=== PATIENT | male | born 1980 | race African-American/Black ===

== ENCOUNTER 2023-07-14 12:10 | Emergency (ER) | payer OTHER, SELFPAY ==
--- NOTE | ~2023-07-14 | US_ITS ---
EXAMINATION: US venous doppler LE RT DATE: 07/14/2023 13:19 INDICATION: Right lower limb pain and swelling. TECHNIQUE: Grayscale ultrasound images without and with compression and Doppler ultrasound images of the right lower extremity veins were obtained. COMPARISON: None. FINDINGS: The visualized portions of right common femoral vein, profunda (deep) femoral vein, femoral vein, pop liteal vein, and greater saphenous vein outflow are patent. The calf veins are not well visualized. IMPRESSION: 1. No deep venous thrombosis. Reviewed, dictated and finalized at location A.
[2023-07-14 12:33] VITALS: BP 193/106; PULSE 103; RESP 16; TEMP 36.3; O2SAT 100
--- NOTE | 2023-07-14 12:54 | ED.LOWEXIN ---
HPI - Extremity Injury (Lower) General Chief Complaint: Extremity Injury, Lower <Stephenie Alcantar PA-C - Last Filed: 07/14/23 13:06> Stated Complaint: right leg swelling <Stephenie Alcantar PA-C - Last Filed: 07/14/23 13:06> Time Seen by Provider: 07/14/23 12:55 <Stephenie Alcantar PA-C - Last Filed: 07/14/23 13:06> Focused HPI:Patient is a 43-year-old male who presents the ED with report of right lower extremity swelling. Patient reports having increased swelling over the last 2 weeks. States his family was concerned and wanted him to come to the ED today. Does complain of pain throughout his right lower extremity. History of DVT last year, which he reports was unprovoked. He is not currently on any blood thinners. Had been on anticoagulation initially. Denies numbness, chest pain, shortness of breath, dyspnea with exertion. Denies any injury. GENERAL: Well-appearing, obese with BMI of 37.2, and in no acute distress. HEAD: Normocephalic, atraumatic. CHEST: Clear to auscultation. ?No respiratory distress. HEART: Borderline tachycardic with regular rhythm.? MSK: Diffuse swelling and tenderness throughout R lower leg. Small ulcerated wound to R lateral lower leg, no active drainage,. NEURO: ?Alert and oriented x3. Patient screened in triage and initial orders placed.? ?Additional care and disposition to be based upon?diagnostic testing and treatment. <Stephenie Alcantar PA-C - Last Filed: 07/14/23 13:06> Source: patient <Stephenie Alcantar PA-C - Last Filed: 07/14/23 13:06> Mode of arrival: ambulatory <Stephenie Alcantar PA-C - Last Filed: 07/14/23 13:06> Limitations: no limitations <Stephenie Alcantar PA-C - Last Filed: 07/14/23 13:06> History of Present Illness HPI Narrative: Agree with HPI. <Brandon Anand MD - Last Filed: 07/14/23 14:41> Related Data Allergies/Adverse Reactions: Allergies Allergy/AdvReac Type Severity Reaction Status Date / Time No Known Allergies Allergy Unknown Verified 09/29/14 22:08 <Stephenie Alcantar PA-C - Last Filed: 07/14/23 13:06> Review of Systems Review of Systems: All systems reviewed & are unremarkable except as noted in HPI and below <Brandon Anand MD - Last Filed: 07/14/23 14:41> Constitutional: Constitutional: Denies chills, Reports fatigue and Denies fever(s) <Brandon Anand MD - Last Filed: 07/14/23 14:41> Cardiovascular: Cardiovascular: Reports no additional cardiovascular complaints <Brandon Anand MD - Last Filed: 07/14/23 14:41> Respiratory: Respiratory: Reports no additional respiratory complaints <Brandon Anand MD - Last Filed: 07/14/23 14:41> Gastrointestinal: Gastrointestinal: Reports no additional gastrointestinal complaints <Brandon Anand MD - Last Filed: 07/14/23 14:41> Musculoskeletal: Musculoskeletal: Reports no additional musculoskeletal complaints <Brandon Anand MD - Last Filed: 07/14/23 14:41> Integumentary/Breasts: Skin/Breast: Denies pruritus, Denies rash and Reports skin ulcer <Brandon Anand MD - Last Filed: 07/14/23 14:41> [facility] Past Medical History Medical History: Medical History (Updated 07/14/23 @ 14:40 by Brandon Anand MD) Attention deficit disorder Chronic fatigue Depression with anxiety Essential hypertension History of DVT (deep vein thrombosis) Mild persistent asthma without complication <Stephenie Alcantar PA-C - Last Filed: 07/14/23 13:06> Family History Family History: Family History (Updated 09/08/15 @ 23:19 by DOCTOR UNKNOWN) Mother Family history of diabetes mellitus in first degree relative <KODAK Hicks Last Filed: 07/14/23 13:06> Social History Social History: Social History Smoking status: Heavy tobacco smoker Alcohol intake: current <KODAK Hicks Last Filed: 07/14/23 13:06> Exam Narrative: GENERAL: sleeping in the room
[2023-07-14 14:04] LABS: Basophils Percent Auto 0.3 % (0.2-1.2); Eosinophils Absolute Auto 0.2 K/mm3 (0-0.3); Eosinophils Percent Auto 2.7 % (0-4.4); Hematocrit 39.5 % (42.0-52.0); Hemoglobin 13.2 g/dL (14.0-18.0); Immature Granulocyte Absolute 0.02 K/mm3 (0.00-0.031); Immature Granulocyte Percent A 0.3 % (0-0.5); Lymphocytes Absolute Auto 1.95 K/mm3 (0.9-3.2); Lymphocytes Percent Auto 28.9 % (18.3-44.2); Mean Corpuscular HGB Conc 33.4 g/dl (32-36); Mean Corpuscular Hemoglobin 28.5 pg (26-34); Mean Corpuscular Volume 85.3 fl (80-100); Mean Platelet Volume 11.3 fl (7.4-10.4); Monocytes Absolute Auto 0.7 K/mm3 (0.1-0.6); Monocytes Percent Auto 10.1 % (2.6-8.5); Neutrophils Absolute Auto 3.9 K/mm3 (1.3-6.7); Neutrophils Percent Auto 57.7 % (45.5-73.1); Platelet Count Result 183 k/mm3 (150-375); Red Blood Count 4.63 M/mm3 (4.6-6.20); Red Cell Distribution Width 14.6 % (11.5-14.5); White Blood Count 6.7 K/mm3 (4.5-10.0)
[2023-07-14 14:22] LABS: Alanine Aminotransferase 33 U/L (6-50); Albumin Level 3.9 g/dL (3.5-5.1); Alkaline Phosphatase 84 U/L (38-126); Anion Gap 5 mmol/L (4-12); Aspartate Amino Transferase 34 U/L (17-59); Bilirubin,Total 0.7 mg/dL (0.2-1.3); Blood Urea Nitrogen 9 mg/dL (9-20); Calcium 8.5 mg/dL (8.4-10.2); Carbon Dioxide 25 mmol/L (22-30); Chloride 110 mmol/L (98-107); Estimated CRCL calculation 115 ml/min; Estimated Glomerular Filt Rate > 60; Glucose 116 mg/dL (65-110); INR 0.9; Partial Thromboplastin Time 29.2 Seconds (22.3-36.8); Potassium 3.7 mmol/L (3.4-5.0); Prothrombin Time 12.9 Seconds (11.1-14.7); Sodium 140 mmol/L (137-145)
== END 2023-07-14 15:21 | disposition home or self-care (01) ==
PROVIDERS: Physician Assistant; Emergency Provider Emergency Medicine
DX: L03.115 Cellulitis of right lower limb (principal); F41.8 Other specified anxiety disorders; I10 Essential (primary) hypertension; Z86.718 Personal history of other venous thrombosis and embolism; J45.909 Unspecified asthma, uncomplicated
CPT/HCPCS: 36415; 80053; 85025; 85610; 85730; 93971; 99284

== ENCOUNTER 2023-12-18 10:27 | Outpatient (CLI) | payer OTHER, SELFPAY ==
--- NOTE | ~2023-12-18 | CT_ITS ---
CT of the Abdomen and Pelvis: Indication: Hematuria Technique: 2.5 mm axial scans were obtained through the abdomen and pelvis prior to and following in travenous administration of 130 cc of Omnipaque 350. Dose reduction technique was used on this scan b y utilizing automated exposure control and iterative reconstruction technique. The dose-length produc t (DLP) was 2672.79 mGy-cm. Findings: Scans through the lung bases are unremarkable. There is an area of coarse calcification in the liver near the gallbladder fossa. The spleen, pancrea s, gallbladder, adrenals and kidneys are within normal limits. There are atherosclerotic calcificatio ns of the aorta. No lymphadenopathy. No bowel obstruction or bowel wall thickening. There is no evidence to suggest acute appendicitis. Images through the pelvis were performed. Urinary bladder unremarkable. No pelvic mass seen. No ascit es. Impression: No etiology for hematuria identified. Reviewed, dictated and finalized at [facility]. SUPERINTENDENT Impression: No etiology for hematuria identified.
[2023-12-18 11:02] LABS: Estimated Glomerular Filt Rate > 60
== END 2023-12-18 10:28 | disposition home or self-care (01) ==
PROVIDERS: Visit Provider Urology
DX: R31.9 Hematuria, unspecified (principal)
CPT/HCPCS: 74178; Q9967

== ENCOUNTER 2024-01-29 00:46 | Day surgery (SDC) | payer OTHER, SELFPAY ==
--- NOTE | 2024-01-16 07:26 | P.HP_ITS ---
History of Present Illness History of Present Illness Consent: Risks, benefits, and alternatives have been discussed and questions answered. Patient agrees to proceed with procedure. Chief complaint: Hematuria Narrative: Clive Bonner Jr. is a 43 year old male who recently underwent evaluation for intermittent episodes of scant terminal hematuria. CT urogram revealed a normal upper urinary tract. Cystoscopy showed a wide caliber bulbous urethral stricture with an otherwise normal bladder and lower urinary tract. After discussion of options he elects for cystoscopy with urethral dilatation. He is aware of the risks including, but not including, recurrent stricture, need for short-term catheterization. Review of Systems Review of Systems: All systems reviewed & are unremarkable except as noted in HPI and below PMFSH Past Medical History Medical History (Updated 01/16/24 @ 07:27 by Shahab Pardo MD) Attention deficit disorder Chronic fatigue Depression with anxiety Essential hypertension History of DVT (deep vein thrombosis) Mild persistent asthma without complication Family History Family History (System 12/24/23 @ 13:18 by Nadya Wade) Mother Family history of diabetes mellitus in first degree relative Social History Social History (System 12/24/23 @ 13:18 by Nadya Wade) Smoking status: Never smoker Alcohol intake: current Meds Home Medications and Allergies Home Medications Medication Instructions Recorded Confirmed Type cefuroxime axetil 500 mg tablet 500 mg PO BID #20 tabs 07/14/23 Rx Allergies Allergy/AdvReac Type Severity Reaction Status Date / Time No Known Allergies Allergy Unknown Verified 12/24/23 13:18 Exam Const: General: no acute distress Resp: Effort & Inspection: normal respiratory effort GI: Inspection: non-distended GI Palp: No abdominal tenderness and No Guarding due to palpation present (GI) Auscultation: normal bowel sounds Assessment and Plan Assessment and plan (1) Bulbous urethral stricture: Code(s): N35.912 - Unspecified bulbous urethral stricture, male Status: Acute Assessment and Plan: * Cystoscopy, urethral dilatation
--- NOTE | 2024-01-21 10:14 | PC.NURSE ---
Spoke with Thee at [facility] alf requesting information be faxed to us.
[2024-01-23 10:03] VITALS: BMI 36.3
--- NOTE | 2024-01-23 10:20 | PC.NURSE ---
Report to hospital entrance 7 to the right of the green pavilion by the Dr's parking lot located off [facility], at time _0930_ on date _[id number]_. Planned Procedure Time: _1130_.? Time changes happen often and if your time is changed the preop area will call you the afternoon before. - You and your visitor will be asked to self-screen and do not enter if you have any COVID symptoms. Please call surgeon if you need to reschedule. - A mask is optional within the hospital at this time. Patients may have clear liquids (water, carbonated beverages, clear teas, apple juice) until 3 hours prior to surgery with a maximum of 20 ounces. - No food from midnight until time of surgery and no smoking. This includes no chewing gum, candy or mints. Take only the following medications with a SIP of water on the morning of surgery: __Amlodipine and Clonidine__ DO NOT STOP ANY OF YOUR OTHER PRESCRIPTION MEDICATIONS PRIOR TO SURGERY EXCEPT THE FOLLOWING Medications to discontinue per physician ____None___ Please no make-up, nail macedonian, hairspray, perfume, deodorant, or body powder the day of surgery.? No jewelry (including any body piercings) or valuables the day of surgery, leave them at home.? Please take a shower or bath the night before, or the morning of, surgery with an antibacterial soap.? Wear comfortable, loose fitting clothing.? - Jewelry must be removed prior to entering the operating room.? Rings and piercings that are not removed may be cut off. - The hospital will not accept responsibility for valuables.? - Please leave all valuables, including medications, at home the day of surgery. If you are going home after surgery, a licensed taxi driver supervisor must drive you home.? - NO public transportation without another adult if you receive anesthesia. - We recommend that an adult stay with you for 24 hours following discharge. - We also recommend that you do not drive, make important decision, drink alcoholic beverages, or take any drugs that were not prescribed by your health care provider for at least 24 hours after your discharge time. Follow any additional instructions given to you from your surgeon. Telephone instructions given to _Rob__and asked if any additional questions and then verbalized understanding. Patient advised to call surgeon office or pre surgery nurse liaison [phone] if any additional questions.
[2024-01-29] VITALS (9 sets, daily range): BP systolic 68–138; BP diastolic 46–82; PULSE 58–80; RESP 14–16; TEMP 36.3; O2SAT 100
--- NOTE | 2024-01-29 06:07 | WPDHPUPDATE1 ---
History and Physical Update Update Date/Time: 01/29/24 06:07 History and Physical has been reviewed, including an updated exam of the patient. There are NO changes in the patient's condition. Risks, benefits, and alternatives have been discussed and questions answered. Patient agrees to proceed with procedure.
--- NOTE | 2024-01-29 09:46 | ECG_ITS ---
Test Date: 2024-01-29 10:18:08 Measurements Intervals [place] Rate: 62 P: 52 MA: 151 QRS: 51 QRSD: 86 T: 30 QT: 410 QTc: 419 Interpretive Statements SINUS RHYTHM No previous ECG available for comparison Electronically Signed On 01-30-2024 11:51:51 [employer] MACHINE ADJUSTER by Baljeet Wan M.D.
[2024-01-29] MEDS: LACTATED RINGERS 1,000 ML 30 ML IV CONT ×2 (10:00→11:35)
--- NOTE | 2024-01-29 10:03 | P.PNAN_ITS ---
Anes - Initial Pre Proc Eval Procedure: Operation Date: 01/29/24 11:30 Proposed Procedures p Cystoscopy, Urethral Dilatation - Shahab Pardo MD Date/Time: 01/29/24 10:03 Surgeon: Shahab Pardo MD Pre Op Diagnosis: Hematuria Patient Data Age: 43 Gender: M Height: 1.75 m Weight: 111.8 kg Allergies Allergy/AdvReac Type Severity Reaction Status Date / Time No Known Allergies Allergy Unknown Verified 01/23/24 10:12 Home Medications ?Medication ?Instructions ?Recorded ?Confirmed ?Type acetaminophen 500 mg tablet 1,000 mg PO BID 01/23/24 01/23/24 History amlodipine 10 mg tablet 10 mg PO DAILY 01/23/24 01/23/24 History clonidine HCl 0.2 mg tablet 0.2 mg PO Q12H 01/23/24 01/23/24 History hydrochlorothiazide 12.5 mg capsule 12.5 mg PO DAILY 01/23/24 01/23/24 History lisinopril 40 mg tablet 40 mg PO DAILY 01/23/24 01/23/24 History tamsulosin 0.4 mg capsule 0.4 mg PO DAILY 01/23/24 01/23/24 History Patient hx anesthesia problems: none Family hx anesthesia problems: none Results Review: All pre-operative results and documents have been reviewed as part of the pre- operative evaluation. [facility] Past Medical History Medical History History of DVT (deep vein thrombosis) Mild persistent asthma without complication Essential hypertension Depression with anxiety Chronic fatigue Attention deficit disorder Family History Family History Mother Family history of diabetes mellitus in first degree relative Social History Social History Smoking status: Never smoker Alcohol intake: current Anes - Eval Final PreProcedure Day of Procedure 01/29/24 10:03 Patient weight: obese Heart: regular rate and rhythm Lungs: clear to auscultation Airway: Mallampati scale class II Neurological: alert and oriented Last oral intake: >/= 8 hours ASA classification: III Emergent: no Anesthetic plan: proceed Anesthesia type and monitoring: general LMA and standard monitoring Results Review: All pre-operative results and documents have been reviewed as part of the pre- operative evaluation. Informed Consent: The patient's anesthetic plan and its attendant risks and benefits were dis cussed with the patient/family/POA. Questions were solicited and answers provided to the satisfaction of the patient/family/POA.
[2024-01-29 10:17] LABS: Anion Gap 5 mmol/L (4-12); Blood Urea Nitrogen 15 mg/dL (9-20); Calcium 9.6 mg/dL (8.4-10.2); Carbon Dioxide 31 mmol/L (22-30); Chloride 104 mmol/L (98-107); Estimated CRCL calculation 126 ml/min; Estimated Glomerular Filt Rate > 60; Glucose 108 mg/dL (65-110); Potassium 4.5 mmol/L (3.4-5.0); Sodium 140 mmol/L (137-145)
[2024-01-29] MEDS: ceFAZolin 2 GM/D5W 50 ML 2 GM/50 ML BAG IVPB (10:47)
[2024-01-29] MEDS: LIDOCAINE 2% GEL UROJET 10 ML PKG MUCOUS MEM (11:01)
--- NOTE | 2024-01-29 11:10 | P.OP_ITS ---
Procedure Note - Detailed Date of Procedure 01/29/24 Pre-op Diagnosis Hematuria, bulbar urethral stricture Post-op Diagnosis Same Procedure Performed Cystoscopy, urethral dilatation Surgeon Shahab Pardo MD Anesthesia General Description of Procedure The patient was brought to the operative suite where he was prepped and draped in a routine sterile fashion while in a dorsal lithotomy position after the uneventful induction of a general LMA anesthetic. Cystoscopy was undertaken with a 19F rigidcystoscope. There were no urethral strictures. The prostatic urethral estimated length was 1.5cm. There was no obstruction of the prostatic urethra with no median lobe enlargement. The bladder itself was endoscopically normal without foreign body or neoplasm. The bladder mucosa was without hyperemia. There was a single orthotopic ureteral orifice bilaterally with clear efflux of urine. Using the disposable pole urethral dilators over a 0.035 in guidewire I dilated the urethra and bladder neck from 12F -> 22 F. The bladder was emptied and the patient was taken to the recovery room in good condi tion Drains No Pathology None sent Complications No immediate complications
[2024-01-29] MEDS: oxyCODONE HCL (*CRX) 5 MG TAB IR PO (12:29)
== END 2024-01-29 13:16 | disposition home or self-care (01) ==
PROVIDERS: Anesthesiology; Visit Provider Urology
PROC: 0T7D8ZZ Dilation of Urethra, Via Natural or Artificial Opening Endoscopic (ICD-10-PCS; CPT 52281; principal; 2024-01-29 11:30)
DX: N35.912 Unspecified bulbous urethral stricture, male (principal)
CPT/HCPCS: 52281; 36415; 80048; 93005; A9270; J0690; J1100; J2250; J2405; J2704; J3010; J7120